=== PATIENT | male | born 1995 | race African-American/Black ===

== ENCOUNTER 2020-12-14 09:08 | Inpatient (IN) | payer MEDICAID ==
[~2020-12-14] VITALS: Ht 188 cm; Wt 65.3 kg
[2020-12-14] MEDS ORDERED: IV NS 0.9% 1,000 ML BAG IV ONE (09:30)
--- NOTE | 2020-12-14 09:34 | NUR ---
BIB RA 878 FROM OUTSIDE A STORAGE FACILITY,GENERALIZED WEAKNESS,HASN'T EAT FOR AWHILE. ON ROOM AIR, BREATHING EVENLY AND UNLABORED. CONNECTED TO THE MONITOR AND PULSE OX. KEPT COMFORTABLE, WILL CONTINUE TO MONITOR ACCORDINGLY.
--- NOTE | 2020-12-14 09:39 | NUR ---
DR MAYA MADE AWAER THE PATIENT`S TEMP OF 94.7F
--- NOTE | 2020-12-14 09:48 | NUR ---
TRACY SIMMONS ORDERED PER DR MAYA. PAGED [facility]EN[facility]PPL[facility] TO DELIVER IT ASHWIN.
--- NOTE | 2020-12-14 09:49 | NUR ---
THE PATIENT IS COVERED WITH MULTIPLE WARM BLANKETS TO KEEP HIM WARM WHILE WAITING FOR TRACY HUGGER TO BE DELIVERED BY CENTR[facility] SUPPL[facility].
[2020-12-14 09:57] LABS: BASOPHILS # (AUTO) 0.1 K/uL (0.0-0.2); BASOPHILS % (AUTO) 0.4 % (0.0-2.0); HEMATOCRIT 59 % (39-51); LYMPHOCYTES % (AUTO) 8.7 % (20.0-44.0); MEAN CORPUSCULAR HGB CONC 32 g/dl (31.0-36.0); MEAN CORPUSCULAR VOLUME 92 fL (80-96); MONOCYTES # (AUTO) 1.2 K/uL (0.1-1.30); MONOCYTES % (AUTO) 5.1 % (2.0-12.0); NEUTROPHILS # (AUTO) 19.5 K/uL (1.8-8.9); NEUTROPHILS % (AUTO) 85.8 % (43.0-81.0); PLATELET COUNT (AUTO) 247 K/uL (150-450); RED BLOOD CELL COUNT(AUTO) 6.42 MIL/uL (4.5-6.0); WHITE BLOOD COUNT (AUTO) 22.8 K/uL (4.3-11.0)
--- NOTE | 2020-12-14 09:57 | NUR ---
TAKEN TO CT
--- NOTE | 2020-12-14 10:05 | NUR ---
THE PATIENT IS BACK FROM CT
--- NOTE | 2020-12-14 10:05 | NUR ---
THE PATIENT REMAINS COVERED WITH MILTIPLE WARM BLANKETS.
[2020-12-14] MEDS ORDERED: PIPERACILLIN /TAZOBACTAM 3.375 G in IV D5W 50 ML IV ONE (10:30)
[2020-12-14] MEDS ORDERED: VANCOMYCIN 1 GM in IV D5W 250 ML IV ONE (10:30)
--- NOTE | 2020-12-14 10:44 | NUR ---
THE PATIENT IS TAEKN TO CT
[2020-12-14 10:47] LABS: BILIRUBIN,TOTAL 0.8 mg/dL (0.2-1.0); CALCIUM, SERUM 8.8 mg/dL (8.5-10.1); POTASSIUM 3.7 mmol/L (3.5-5.1)
[2020-12-14 10:48] LABS: ALBUMIN 5.2 g/dL (3.4-5.0); BILIRUBIN,DIRECT 0.3 mg/dL (0.0-0.2); TOTAL PROTEIN, SERUM 9.6 g/dL (6.4-8.2)
--- NOTE | 2020-12-14 10:58 | NUR ---
COVID SWAB DONE AND SENT TO LAB
[2020-12-14] MEDS ORDERED: IV NS 0.9% 1,000 ML IV ONE (11:30)
--- NOTE | 2020-12-14 11:31 | NUR ---
[facility] CALLED FLAT SCREEN WORKER PAGED.
--- NOTE | 2020-12-14 11:37 | NUR ---
TEXTED DR. HILARIO TO CALL US BACK.
--- NOTE | 2020-12-14 11:45 | NUR ---
[facility] CALLED AGAIN
--- NOTE | 2020-12-14 12:08 | NUR ---
GOT BED 117-2
--- NOTE | 2020-12-14 12:14 | NUR ---
REPORT GIVEN TO NURSE SOON
--- NOTE | 2020-12-14 12:19 | NUR ---
TRACY SIMMONS DELIVERED AND APPLIED ON THE PATIENT.
--- NOTE | 2020-12-14 12:27 | NUR ---
THE PATIENT IS TAKEN TO ASSIGNED ROOM IN STABLE CONDITION AND PER ACLS POLICY.
[2020-12-14] MEDS ORDERED: MAGNESIUM HYDROXIDE 30 ML UDC PO PRN (12:30)
[2020-12-14] MEDS ORDERED: LORAZEPAM INJ 2 MG/ML VIAL IV PRN (12:30)
[2020-12-14] MEDS ORDERED: ZOLPIDEM TARTRATE 5 MG TABLET PO PRN (12:30)
[2020-12-14] MEDS ORDERED: MAG HYDROX/AL HYDROX/SIMETH 30 ML UDC PO PRN (12:30)
[2020-12-14] MEDS ORDERED: Z GUARD REMEDY 2 OZ OINT TP PRN (12:30)
[2020-12-14] MEDS ORDERED: ONDANSETRON HCL/PF 4 MG/2 ML VIAL IVP PRN (12:30)
[2020-12-14] MEDS ORDERED: ACETAMINOPHEN 325 MG TABLET PO PRN (12:30)
[2020-12-14] MEDS: IV 1/2NS 1000 ML 1,000 ML IV SCH ×2 (12:43→18:32)
--- NOTE | 2020-12-14 12:45 | NUR ---
RN NOTE PATIENT ADMITTED FROM ER WITH BARBOUR CATHETER, PATIENT AWAKE AND RESPONSIVE, ABLE TO VERBALIZE NEEDS, AMBULATES TO BATHROOM WITH ASSIST, ADMITTING TO TELE ROOM 117-[address] LA.
[2020-12-14] MEDS ORDERED: INSULIN REGULAR, HUMAN 100 UNIT/ML 3 ML VIAL SQ PRN (13:00)
[2020-12-14] MEDS ORDERED: *INSULIN REGULAR(HUMULIN R)HUM 100 UNIT/ML VIAL SQ PRN (13:00)
[2020-12-14] MEDS ORDERED: DEXTROSE 50%-WATER 50 ML DISP.SYRIN IV PRN (13:00)
[2020-12-14 16:00] VITALS: BP 118/79
[2020-12-14] MEDS ORDERED: BLOOD SUGAR DIAGNOSTIC 1 EACH STRIP VI SCH (17:30)
--- NOTE | 2020-12-14 18:29 | NUR ---
RN NOTE PATIENT PULLED PUT BARBOUR CATHETER
--- NOTE | 2020-12-14 18:56 | NUR ---
RN NOTE PATIENT PULLED OUT IV RIGHT AC, WANTS TO LEAVE THE HOSPITAL AGAINST MEDICAL ADVICE, NOTIFIED DR. LA OK TO GO AMA PER BESSIE HERNANDEZ.
== END 2020-12-14 19:07 | disposition left against medical advice (07) | DRG 426 ==
LOC: ER 09:12 → TELE1 12:11
PROVIDERS: ADMIT Internal Medicine; ATTEND Internal Medicine
DX: E87.0 Hyperosmolality and hypernatremia (principal); N17.0 Acute kidney failure with tubular necrosis; J98.59 Other diseases of mediastinum, not elsewhere classified; E87.2 Acidosis; Z59.0 Homelessness; E86.1 Hypovolemia; R53.1 Weakness; Z20.822 Contact with and (suspected) exposure to COVID-19; F15.10 Other stimulant abuse, uncomplicated; F17.210 Nicotine dependence, cigarettes, uncomplicated; R73.9 Hyperglycemia, unspecified
CPT/HCPCS: 36415; 70450-TC; 71045-TC; 71250-TC; 76770-TC; 80048-TC; 80076-TC; 82550-TC; 82553; 83605-TC; 85025-TC; 87040-TC; 87081-TC; C9803; G0378; G0480; J1815; J2543; J3370; J3490; J7030; J7060; U0003

== ENCOUNTER 2020-12-14 22:59 | Inpatient (IN) | payer MEDICAID ==
[~2020-12-14] VITALS: Ht 182.9 cm; Wt 70.3 kg
--- NOTE | 2020-12-14 23:15 | NUR ---
BIBSELF C/O FEELING SICK AND NAUSEA. PT A/OX4. TOLERATING R/A WELL. CONNECTED PT POX AND TELE MONITOR.
[2020-12-14] MEDS ORDERED: IV NS 0.9% 1,000 ML BAG IV ONE (23:30)
--- NOTE | 2020-12-15 00:05 | NUR ---
BLOOD WORK COLLECTED AND SENT TO LAB. RAC #20G S/L AND LAC #20G INFUSING NS
--- NOTE | 2020-12-15 00:10 | NUR ---
XRAY AT BEDSIDE
--- NOTE | 2020-12-15 00:15 | NUR ---
URINE COLLECTED AND SENT TO LAB. URINE COLOR BRIGHT RED NOTED.
[2020-12-15] MEDS ORDERED: IV 1/2NS 1000 ML 1,000 ML IV PRN (00:30)
--- NOTE | 2020-12-15 01:40 | NUR ---
ALL LAB WORK PICKED UP SEND OUT TO [facility]
--- NOTE | 2020-12-15 02:01 | NUR ---
LAB CALLED TO REDRAW PT; ORDER ENTRY ADMINISTRATOR WILL SEND OUT TO DENEEN
[2020-12-15 02:24] LABS: WHITE BLOOD COUNT (AUTO) 20.1 K/uL (4.3-11.0)
[2020-12-15 02:25] LABS: HEMATOCRIT 54 % (39-51); HEMOGLOBIN 17.8 g/dL (13.5-17.5); MEAN CORPUSCULAR HGB CONC 33 g/dl (31.0-36.0); MEAN CORPUSCULAR VOLUME 90 fL (80-96); NEUTROPHILS % (AUTO) 87.3 % (43.0-81.0); PLATELET COUNT (AUTO) 210 K/uL (150-450); RED BLOOD CELL COUNT(AUTO) 5.95 MIL/uL (4.5-6.0)
[2020-12-15 02:26] LABS: BASOPHILS % (AUTO) 0.2 % (0.0-2.0); EOSINOPHILS % (AUTO) 0.2 % (0.0-6.0); LYMPHOCYTES # (AUTO) 1.7 K/uL (0.8-4.8); LYMPHOCYTES % (AUTO) 8.4 % (20.0-44.0); MONOCYTES # (AUTO) 0.8 K/uL (0.1-1.30); MONOCYTES % (AUTO) 3.9 % (2.0-12.0); NEUTROPHILS # (AUTO) 17.6 K/uL (1.8-8.9)
--- NOTE | 2020-12-15 02:52 | NUR ---
PT NOTED WITH 250ML TEA COLORED URINE
--- NOTE | 2020-12-15 02:59 | NUR ---
JALEN FROM [facility] REPORTED LACTIC ACID IS 4.1. BARRY GEORGE AWARE.
[2020-12-15] MEDS ORDERED: VANCOMYCIN 1 GM in IV D5W 250ml IV ONE (03:00)
[2020-12-15] MEDS ORDERED: VANCOMYCIN 1 GM VIAL ONE (03:08)
[2020-12-15 03:26] LABS: CALCIUM, SERUM 9.1 mg/dL (8.5-10.1); CARBON DIOXIDE 23 mmol/L (21-32); CHLORIDE 117 mmol/L (98-107); GLUCOSE 100 mg/dL (74-106); POTASSIUM 4.1 mmol/L (3.5-5.1); SODIUM SERUM 155 mmol/L (136-145)
[2020-12-15 03:27] LABS: BILIRUBIN,TOTAL 0.8 mg/dL (0.2-1.0); CREATININE 3.8 mg/dL (0.6-1.3)
[2020-12-15 03:28] LABS: ALKALINE PHOSPHATASE 78 U/L (46-116); ASPARTATE AMINOTRANSFERASE 32 U/L (15-37); BILIRUBIN,DIRECT < 0.1 mg/dL (0.0-0.2)
[2020-12-15 03:29] LABS: ALANINE AMINOTRANSFERASE 17 U/L (12-78); ALBUMIN 4.6 g/dL (3.4-5.0); TOTAL PROTEIN, SERUM 8.8 g/dL (6.4-8.2)
[2020-12-15 03:31] LABS: UREA NITROGEN, BLOOD 137 mg/dL (7-18)
[2020-12-15 04:19] LABS: COLOR,URINE BLOODY (YELLOW); PH,URINE 5.5 (5.0-8.0); PROTEIN,URINE 3+ mg/dl (NEGATIVE); UGLUCOSE NEGATIVE (NEGATIVE)
[2020-12-15 04:20] LABS: BILIRUBIN,URINE NEGATIVE (NEGATIVE); LEUKOCYTE ESTERASE ,URINE NEGATIVE (NEGATIVE); NITRITE, URINE NEGATIVE (NEGATIVE); UROBILINOGEN,URINE 0.2 EU/dL (0.2)
[2020-12-15 04:21] LABS: BACTERIA,URINE None seen /HPF (None Seen); SQUAMOUS EPITHELIAL CELL,UR Few /HPF (None Seen); URIC ACID CRYSTALS,URINE Few /HPF (None Seen); WBC,URINE TOO NUMEROUS TO COUN /HPF (0-3)
[2020-12-15 04:25] LABS: THYROID STIMULATING HORMONE 1.784 uIU/mL (0.358-3.74)
[2020-12-15] MEDS ORDERED: PIPERACILLIN /TAZOBACTAM 3.375 G VIAL IV ONE (05:01)
[2020-12-15] MEDS ORDERED: PIPERACILLIN /TAZOBACTAM 3.375 G in IV D5W 50 ML IV SCH ×2 (06:00→12:00)
--- NOTE | 2020-12-15 06:12 | NUR ---
ROOM 106 AFTER SHIFT CHANGE
--- NOTE | 2020-12-15 07:14 | NUR ---
SPOKE TO JESSICA HERNANDEZ RN; RN NOT AVAILABLE FOR REPORT AT THIS TIME.
[2020-12-15 08:11] VITALS: BP 115/81
--- NOTE | 2020-12-15 08:12 | NUR ---
Patient does not wish to proceed with medical care recommended by Dr. Leslie. Patient given information related to possible complications, up to and including , which could occur as a result of leaving the hospital at this time. Patient verbalizes understanding of risks involved due to leaving against medical advice. Patient has signed AMA form.
--- NOTE | 2020-12-16 10:09 | NUR ---
SS note SS consult requested for drug abuse. SW was unable to assess the pt as the pt had already been discharged. No further SS intervention at this time, however, SW will remain available as needed.
== END 2020-12-15 07:55 | disposition left against medical advice (07) | DRG 469 ==
LOC: ER 23:01 → TRANSITION 12-15 01:14
PROVIDERS: ADMIT Family Medicine; ATTEND Family Medicine
DX: N17.9 Acute kidney failure, unspecified (principal); J98.2 Interstitial emphysema; E86.0 Dehydration; D72.829 Elevated white blood cell count, unspecified; E11.9 Type 2 diabetes mellitus without complications; F15.10 Other stimulant abuse, uncomplicated
CPT/HCPCS: 36415; 71045-TC; 80048-TC; 80076-TC; 81001; 82140-TC; 82962-TC; 83605-TC; 84443-TC; 84484-TC; 85025-TC; 85730-TC; 87040-TC; 87081-TC; 87086-TC; G0378; G0480; J2543; J3370; J3490; J7030; J7060

== ENCOUNTER 2020-12-22 15:25 | Inpatient (IN) | payer MEDICAID, OTHER ==
[~2020-12-22] VITALS: Ht 188 cm; Wt 61.2 kg
--- NOTE | 2020-12-22 17:42 | NUR ---
THE PATIENT IS BIBRA99, SLEEPING IN A BIKE PATH STATE "I DONT WANT TO LIVE ANYMORE". THE PATIENT IS ALERT AND ORIENTED X3. THE PATIENT DENIES SI/HI AT THIS TIME. HE STATES THAT HE HAS NOT BEEN EATING FOR MANY DAYS AND WANTS FOOD AND WATER. THE PATIENT DENIES PAIN. IN ROOM AIR AND DENIES SOB. RESPIRATION REGULAR AND UNLABORED. THE PATIENT IS ATTACHED TO THE MONITOR. WARM BLANKET PROVIDED FOR COMFORT. WILL CONTINUE TO MONITOR THE PATIENT.
--- NOTE | 2020-12-22 17:57 | NUR ---
COVID SWAB DONE AND SENT TO THE LAB
[2020-12-22 18:31] LABS: BILIRUBIN,URINE MODERATE (NEGATIVE); COLOR,URINE YELLOW (YELLOW); LEUKOCYTE ESTERASE ,URINE NEGATIVE (NEGATIVE); NITRITE, URINE NEGATIVE (NEGATIVE); PH,URINE 5.5 (5.0-8.0); PROTEIN,URINE 30 mg/dl (NEGATIVE); UGLUCOSE NEGATIVE (NEGATIVE); UROBILINOGEN,URINE 0.2 EU/dL (0.2)
[2020-12-22 18:57] LABS: BACTERIA,URINE 1+ /HPF (None Seen); HYALINE CASTS, URINE Many /LPF (None Seen); MUCUS,URINE Moderate /LPF (None Seen); SQUAMOUS EPITHELIAL CELL,UR 0-2 /HPF (None Seen)
[2020-12-22 19:23] LABS: ALANINE AMINOTRANSFERASE 30 U/L (12-78); ALBUMIN 4.9 g/dL (3.4-5.0); ALKALINE PHOSPHATASE 94 U/L (46-116); ASPARTATE AMINOTRANSFERASE 28 U/L (15-37); BILIRUBIN,DIRECT 0.2 mg/dL (0.0-0.2); BILIRUBIN,TOTAL 0.8 mg/dL (0.2-1.0); CALCIUM, SERUM 9.4 mg/dL (8.5-10.1); CREATININE 2.5 mg/dL (0.6-1.3); GLUCOSE 179 mg/dL (74-106); TOTAL PROTEIN, SERUM 9.4 g/dL (6.4-8.2)
[2020-12-22 19:27] LABS: CARBON DIOXIDE 27 mmol/L (21-32); CHLORIDE 123 mmol/L (98-107); POTASSIUM 4.2 mmol/L (3.5-5.1)
[2020-12-22 19:29] LABS: BASOPHILS % (AUTO) 0.3 % (0.0-2.0); EOSINOPHILS % (AUTO) 0.3 % (0.0-6.0); HEMOGLOBIN 18.4 g/dL (13.5-17.5); NEUTROPHILS # (AUTO) 9.9 K/uL (1.8-8.9)
[2020-12-22 19:32] LABS: ACETAMINOPHEN 0 ug/ml (10-30); ALCOHOL, BLOOD < 3 mg/dL (0-0); SODIUM SERUM 166 mmol/L (136-145); UREA NITROGEN, BLOOD 98 mg/dL (7-18)
[2020-12-22 19:33] LABS: HEMATOCRIT 58 % (39-51); LYMPHOCYTES # (AUTO) 2.7 K/uL (0.8-4.8); LYMPHOCYTES % (AUTO) 19.6 % (20.0-44.0); MEAN CORPUSCULAR HGB CONC 32 g/dl (31.0-36.0); MEAN CORPUSCULAR VOLUME 93 fL (80-96); MONOCYTES % (AUTO) 7.6 % (2.0-12.0); NEUTROPHILS % (AUTO) 72.2 % (43.0-81.0); PLATELET COUNT (AUTO) 191 K/uL (150-450); RED BLOOD CELL COUNT(AUTO) 6.22 MIL/uL (4.5-6.0); WHITE BLOOD COUNT (AUTO) 13.7 K/uL (4.3-11.0)
[2020-12-22 19:56] LABS: BAND % (MANUAL) 1 % (0.0-5.0); EOSINOPHILS % (MANUAL) 2 % (0-4); LYMPHOCYTES % (MANUAL) 21 % (16-48); MONOCYTES % (MANUAL) 11 % (0-11.0); NEUTROPHILS % (MANUAL) 64 (42-76); REACTIVE LYMPHOCYTES 1 % (0-0)
[2020-12-22] MEDS ORDERED: IV NS 0.9% 500 ML BAG IV ONE (20:00)
--- NOTE | 2020-12-22 20:00 | NUR ---
PATIENT IN BED RESTING. PATIENT VSS. PATIENT IN NO ACUTE DISTRESS. PATIENT CONNECTED TO CARDIAC AND POX MONITORS.
[2020-12-22] MEDS ORDERED: MORPHINE SULFATE INJ 2 MG/ML DISP.SYRIN IV PRN (21:30)
[2020-12-22] MEDS ORDERED: ACETAMINOPHEN 325 MG TABLET PO PRN (21:30)
[2020-12-22] MEDS ORDERED: MAGNESIUM HYDROXIDE 30 ML UDC PO PRN (21:30)
[2020-12-22] MEDS ORDERED: ZOLPIDEM TARTRATE 5 MG TABLET PO PRN (21:30)
[2020-12-22] MEDS ORDERED: ONDANSETRON HCL/PF 4 MG/2 ML VIAL IVP PRN (21:30)
[2020-12-22] MEDS ORDERED: Z GUARD REMEDY 2 OZ OINT TP PRN (21:30)
[2020-12-22] MEDS ORDERED: MAG HYDROX/AL HYDROX/SIMETH 30 ML UDC PO PRN (21:30)
[2020-12-22] MEDS: IV 1/2NS 1000 ML 1,000 ML IV PRN (22:17)
[2020-12-22] MEDS ORDERED: LORAZEPAM 1 MG TABLET ONE (22:28)
[2020-12-22] MEDS ORDERED: ZOLPIDEM TARTRATE 5 MG TABLET ONE (22:33)
[2020-12-22] MEDS: LORAZEPAM 1 MG TABLET PO PRN (22:38)
[2020-12-23] MEDS ORDERED: MORPHINE SULFATE INJ 2 MG/ML DISP.SYRIN ONE (04:24)
[2020-12-23 05:02] LABS: BASOPHILS % (AUTO) 0.3 % (0.0-2.0); EOSINOPHILS % (AUTO) 1.7 % (0.0-6.0); HEMATOCRIT 46 % (39-51); HEMOGLOBIN 14.6 g/dL (13.5-17.5); LYMPHOCYTES # (AUTO) 2.9 K/uL (0.8-4.8); LYMPHOCYTES % (AUTO) 20.9 % (20.0-44.0); MEAN CORPUSCULAR HGB CONC 32 g/dl (31.0-36.0); MEAN CORPUSCULAR VOLUME 91 fL (80-96); MONOCYTES # (AUTO) 1.2 K/uL (0.1-1.30); MONOCYTES % (AUTO) 8.5 % (2.0-12.0); NEUTROPHILS # (AUTO) 9.4 K/uL (1.8-8.9); NEUTROPHILS % (AUTO) 68.6 % (43.0-81.0); PLATELET COUNT (AUTO) 132 K/uL (150-450); RED BLOOD CELL COUNT(AUTO) 5.02 MIL/uL (4.5-6.0); WHITE BLOOD COUNT (AUTO) 13.7 K/uL (4.3-11.0)
[2020-12-23 05:21] LABS: CREATININE 1.7 mg/dL (0.6-1.3); MAGNESIUM 2.7 mg/dL (1.8-2.4); PHOSPHORUS 1.9 mg/dL (2.5-4.9); POTASSIUM 3.7 mmol/L (3.5-5.1)
--- NOTE | 2020-12-23 06:04 | NUR ---
pt sleeping in [place]. no signs of distress noted. pt vital signs stable. will cont to monitor pt.
[2020-12-23] MEDS ORDERED: PANTOPRAZOLE 40 MG TABLET.DR PO ONE (07:36)
[2020-12-23] MEDS: PANTOPRAZOLE 40 MG TABLET.DR PO SCH (07:42)
--- NOTE | 2020-12-23 07:44 | NUR ---
assume patient care. resting in bed. stable vitals. am medis given. provided w/ breakfast tray.
--- NOTE | 2020-12-23 07:58 | NUR ---
REPORT GIVEN TO SIMON HILLS. PT AWAITING TRANSFER TO FLOOR.
[2020-12-23 08:30] VITALS: BP 76/50
--- NOTE | 2020-12-23 08:30 | NUR ---
MS RN NOTES ADMITTED FROM ER, DX ACUTE RENAL FAILURE/HYPERNATREMIA BY DR. BARBIE BOWMAN, AO X 3, PT FOUND FROM BIKE PATHWAY BY AMBULANCE, HOMELESS, WAS PREVIOUSLY ADMITTED HER BUT WENT AGAINST MEDICAL ADVISE. ON ROOM AIR, NOT IN ANY DISTRESS, NO SOB, RESPIRATION UNLABORED, O2 SAT 100%. DENIES ANY PAIN AT THIS TIME, IV ACCESS ON RIGHT UPPER ARM G 20, FLUSHES WELL SITE CLEAR. SKIN INTACT, REGULAR DIET, UNIT ORIENTATION AND USE OF CALL LIGHT DONE, VERBALIZED UNDERSTANDING, BED LOW LOCKED, SR UP X 2, SITTER AT BEDSIDE. ADMIT ORDERS CARRIED OUT. PATIENT FOR PSYCH CONSULT TODAY. WILL CONT TO MONITOR
[2020-12-23] MEDS: HEPARIN SODIUM, PORCINE 5000 UNITS/1 ML VIAL SQ SCH ×2 (09:40→22:00)
[2020-12-23] MEDS ORDERED: K PHOS NEUTRAL 250 MG TABLET PO ONE (10:00)
[2020-12-23] MEDS: ENSURE ENLIVE 237 ML LIQUID (VANILLA) PO SCH ×3 (10:30→17:12)
[2020-12-23] MEDS: IV 1/2NS 1000 ML 1,000 ML IV PRN (10:40)
--- NOTE | 2020-12-23 14:05 | NUR ---
SS consult SS consult requested for homelessness. Pt is a 25-year-old, male. SW met with pt at his bedside in the med-surg unit. Pt was alert and oriented x3. Pt was not oriented to situation. Pt presented lethargic and was resting. Pt was calm and cooperative. Pt appeared well-groomed and appropriately dressed. Per chart, pt was brought in by ambulance on 12/22/20 and was found sleeping on a bike path and stated, "I don't want to live anymore." SW asked pt about his prior living arrangement and pt was unable to provide SW with adequate information. Pt repeatedly stated, "[place]" and reported that he currently lives at a house. Pt was unable to provide SW with an address for the residence or further information regarding the location. Pt denied homelessness. Pt stated that he currently has no social support. Pt receives SSI as a source of income. Pt reported no hx of substance use. Pt denied hx of mental illness. Pt denied current SI/HI. Per H&P, pt stated that he is homeless and admits to substance use hx. Per pt's RN Constanza, pt has a hx of amphetamine use. SW discussed with pt's RN that the pt denied homelessness. SW notified REINIER Apodaca that homeless resources and waiver will be filed in the pt's chart. AQUILES discussed d/c plans with the pt who stated he plans to return to his prior living arrangement and use public transportation to return. SS will remain available to follow up as needed. PLAN: SW filed homeless resources and waiver in the pt's chart for F/U at a later time and notified REINIER Apodaca. SS will remain available as needed. RESOURCES FILED: RESOURCES: Year-round shelters: [facility] [address] [place], [place] [phone] ; [facility] [address] [place] [address]; [id number] [facility]. [facility] [address] SPA 4 | [facility] Provider: First to Serve Address: [address] [place] [address], [facility] # of Beds: 48 Population Served: [facility] Provider: First to Serve Address: [address] [facility], [address] # of Beds: 73 Population Served: [place] SPA 6 | [facility] Provider: [facility] Last Address: [address] [facility], [address] # of Beds: 63 Population Served: [place] SPA 3 | [facility] Provider: [facility] [place] Address: [address] [facility], [address] # of Beds: 75 Population Served: [place] SPA 8 | [facility] Provider: [facility] [place] Address: [address] [facility], [address] # of Beds: 80 Population Served: [facility] 1 | [facility] Provider: [facility] [place] Address: [id number] [place] [address], [address] # of Beds: 85 Population Served: [facility] 2 | [facility] Provider: [facility] Address: Confidential (please call for location) # of Beds: 52 Population Served: [facility] 4 | [facility] Provider: [facility] Address: [address] [facility] [place], [address] # of Beds: 49 Population Served: [facility] Provider: First To Serve Address: [address] [place] [address], [address] # of Beds: 27 Population Served: Phyllis Hygiene: [facility]: [address] ; [facility] [address] [facility] ; [facility] [address] . Food Resources: [place] [facility] at [facility]- [address] [place]; Meet Each Need with Dignity ([facility]) [address] [facility]; [facility] [address] [facility]; [facility] [address] [place]. Mental Health resources provided: [facility] [address] [place] [address] ; [facility] [address] [facility] [address], [place], [place] [phone] ; [facility] [address] [facility] [place], [place] [phone] ; [facility] [address] [place], [place] [phone] Healthcare Clinics: [facility] [address] [facility] [place]. [place] ; [facility] [address] [facility] [address] [place] [address]; [facility] [address] [facility]. [place] [phone] Counseling--Outpatient [facility] [address], [address] [place], [place] [phone] (Specializes in in-depth psychotherapy for emotional distress: anxiety, depression, interpersonal conflicts, life transitions, childhood abuse) PSYCHIATRIC OUTPATIENT SERVICES [facility] Partial Hospitalization and Intensive Outpatient Program (Managed Care and [place] Only) [address] [facility]. [facility] [phone] [facility] Partial Hospitalization and Outpatient Program [address] [place], [place] [phone] [facility] Partial Hospitalization and Outpatient Program [address] [facility] [place], [place] [phone] [facility] [place] [facility] [address] [facility]. [address] [place], [place] [address] [facility] Partial Hospitalization and Outpatient Program [address] [place], [place] [phone] Substance use resources provided included: [facility] Substance Abuse Self-Helpline (SAS) ; [facility] [address] [facility]. [place] [address] ; [facility] [address] [facility] [address] ; [facility] [address] [facility] [phone] ; [facility] [address] [facility] [address] ; [facility] [address] [facility] [phone] ; [facility] [place]; [facility] [place]; [facility] Natalie; Alcoholics Anonymous -SFV
[2020-12-23 16:00] VITALS: BP 109/72
[2020-12-23] MEDS: risperiDONE 1 MG TABLET PO SCH (16:07)
[2020-12-23] MEDS: IV NS 0.9% 1,000 ML IV PRN (16:32)
--- NOTE | 2020-12-23 19:05 | NUR ---
RN NOTES ALL NEEDS MET AT THIS TIME. ALL NEEDS ATTENDED. SITTER AT BEDSIDE FOR SAFETY. NOT IN ANY DISTRESS. PATIENT HAS BEEN CALM AND COOPERATIVE BUT STILL VERBALIZES SUICIDAL THOUGHTS. ENDORSED TO NEXT SHIFT FOR FRANCK.
--- NOTE | 2020-12-23 19:30 | NUR ---
RN NOTE PT RESTING IN BED, NOURISHMENT PROVIDED. NO DISTRESS NOTED, VERBALIZES SI. SITTER AT BEDSIDE. PT ON ROOM AIR, BREATHING EVEN AND UNLABORED. IV SITE FLUSHED. SAFETY MEASURES IN PLACE. WILL CONT TO MONITOR
--- NOTE | 2020-12-23 22:34 | NUR ---
RN NOTE PT PULLED OUT IV, REFUSED INSERTION. CATHETER INTACT. NO S/S OF BLEEDING NOTED. RADAR ENGINEERING TEACHER COLBY MADE AWARE
--- NOTE | 2020-12-23 22:35 | NUR ---
RN NOTE REPORT GIVEN TO EVELYN HILLS FOR CONTINUATION OF CARE
--- NOTE | 2020-12-23 22:35 | NUR ---
RN NOTE RECEIVED PATIENT IN BED RESTING ALERT ORIENTED ON ROOM AIR VERBALLY RESPONSIVE WITH SITTER BEDSIDE STARTED A NEW IV LINE ON RIGHT FOREARM #22 STARTED NS 125CC/HR CONTINUE TO MONITOR.
[2020-12-24] MEDS: IV NS 0.9% 1,000 ML IV PRN ×2 (05:38→16:16)
[2020-12-24 06:36] LABS: BASOPHILS % (AUTO) 0.3 % (0.0-2.0); EOSINOPHILS % (AUTO) 1.4 % (0.0-6.0); HEMATOCRIT 33 % (39-51); HEMOGLOBIN 11.2 g/dL (13.5-17.5); LYMPHOCYTES # (AUTO) 2.4 K/uL (0.8-4.8); LYMPHOCYTES % (AUTO) 39.4 % (20.0-44.0); MEAN CORPUSCULAR HGB CONC 34 g/dl (31.0-36.0); MEAN CORPUSCULAR VOLUME 88 fL (80-96); MONOCYTES # (AUTO) 0.5 K/uL (0.1-1.30); MONOCYTES % (AUTO) 7.5 % (2.0-12.0); NEUTROPHILS # (AUTO) 3.1 K/uL (1.8-8.9); NEUTROPHILS % (AUTO) 51.4 % (43.0-81.0); PLATELET COUNT (AUTO) 96 K/uL (150-450); RED BLOOD CELL COUNT(AUTO) 3.77 MIL/uL (4.5-6.0)
--- NOTE | 2020-12-24 06:48 | NUR ---
RN NOTE PATIENT PULLED OUT IV LINE AND REFUSES TO HAVE A NEW ONE CONTINUE TO MONITOR.
--- NOTE | 2020-12-24 06:53 | NUR ---
RN NOTE PATIENT REMAINS ALERT ORIENTED X3 VERBALLY RESPONSIVE ON ROOM AIR HE REFUSES TO HAVE IV LINE WILL ENDORSE NEXT COMING SHIFT FOR CONTINUATION OF CARE.
[2020-12-24 07:15] LABS: CALCIUM, SERUM 7.6 mg/dL (8.5-10.1); CREATININE 1.1 mg/dL (0.6-1.3); MAGNESIUM 1.8 mg/dL (1.8-2.4); POTASSIUM 3.6 mmol/L (3.5-5.1)
[2020-12-24] MEDS: PANTOPRAZOLE 40 MG TABLET.DR PO SCH (07:51)
[2020-12-24 08:00] VITALS: BP 119/100
--- NOTE | 2020-12-24 08:08 | NUR ---
NURSE OPENING NOTE RECEIVE REPORT FROM OUT GOING NURSE. PATIENT IS STABLE AND COMFORTABLE. A/O X3. PATIENT IS ON ROOM AIR. SITTER IS NEEDED. PATIENT WANT TO BE LEAVE THE HOSPITAL BUT NEED TO BE CLEAR BY DOCTOR DUE TO HYPERNATREMIA. WILL MONITOR LABS. SAFETY MEASURE IN PLACE. CALL LIGHT WITH IN REACH. BED IN LOWEST POSITION WITH HOB ELEVATED 3 DEGREE. WILL CONTINUE TO MONITOR.
[2020-12-24 09:00] VITALS: BP 119/100
[2020-12-24] MEDS ORDERED: ESCITALOPRAM OXALATE (10 MG) 10 MG TABLET PO SCH (09:00)
[2020-12-24] MEDS: ENSURE ENLIVE 237 ML LIQUID (VANILLA) PO SCH ×3 (09:00→17:31)
--- NOTE | 2020-12-24 09:09 | NUR ---
RN NOTE Refused all due meds including Risperdal, lexapro, Arivan PRN. Attempted to leave room and walked down the hallway, escorted back in the room by staff. Wants to leave hospital states daughter and mother are waiting for him. Texted DNP.
[2020-12-24] MEDS: LORAZEPAM 1 MG TABLET PO PRN (09:21)
[2020-12-24] MEDS: risperiDONE 1 MG TABLET PO SCH ×2 (09:21→16:44)
[2020-12-24 10:12] LABS: BAND % (MANUAL) 1 % (0.0-5.0); EOSINOPHILS % (MANUAL) 3 % (0-4); LYMPHOCYTES % (MANUAL) 39 % (16-48); MONOCYTES % (MANUAL) 8 % (0-11.0); NEUTROPHILS % (MANUAL) 49 (42-76)
[2020-12-24] MEDS: HEPARIN SODIUM, PORCINE 5000 UNITS/1 ML VIAL SQ SCH ×2 (10:33→21:00)
--- NOTE | 2020-12-24 14:27 | NUR ---
PATIENT AWAKE ALERT WANTED TO LEAVE HOSPITAL,CLARIFY WITH DR. MAIDA OBANDO IF PT MEDICALLY CLEAR PER MAIDA WILEY TO INITIATE CRISI TEAM PRICILLA.SPOKE WITH SALVADOR AND WILL SEND CRISIS TEAM TO EVAL PT.
[2020-12-24] MEDS ORDERED: K PHOS NEUTRAL 250 MG TABLET PO ONE (15:30)
[2020-12-24] MEDS: HYDROCODONE/APAP 5/325MG TABLET PO PRN (15:48)
--- NOTE | 2020-12-24 16:17 | NUR ---
NURSE NOTE INSERT NEW IV, RIGHT FOREARM,18G. FLUSH WELL. WILL CONTINUE NORMAL SALINE @ 125ML/HR. Addendum: 12/24/20 at 1628 by MIRANDA GONSALEZ RN IV IS 20G.
[2020-12-24 16:30] VITALS: BP 148/68
--- NOTE | 2020-12-24 17:20 | NUR ---
SALVADOR FROM CRISIS TEAM CALLED UPDATED WITH PATIENT BEHAVIOUR AND DR. LEAVITT RECOMMENDATION,WILL SEE PATIENT TONITE.
--- NOTE | 2020-12-24 17:22 | NUR ---
CORRECTION [place] HILLS FROM CRISIS TEAM.
--- NOTE | 2020-12-24 19:35 | NUR ---
RN NOTE PT RECEIVED SLEEPING IN BED. PT IS ON ROOM AIR SHOWING NO S/S OF RESP DISTRESS/SOB. A/OX3. SKIN INTACT. CURRENTLY ON REGULAR DIET. SITTER PRESENT. IV ACCESS NOTED ON RIGHT FA #20, LINE FLUSHED, PATENT, AND INTACT RUNNING 0.9% NS AT 125 ML/HR, NO SIGNS OF INFILTRATION. ALL SAFETY MEASURES IMPLEMENTED. CALL LIGHT WITHIN REACH. BED ALARM ON. BED LOCKED AND IN LOWEST POSITION. WILL CONTINUE TO MONITOR AND ASSESS FOR ANY CHANGES THROUGHOUT SHIFT.
[2020-12-24 21:00] VITALS: BP 91/54
--- NOTE | 2020-12-24 22:02 | NUR ---
RN NOTE SPOKE WITH DR. NIETO ABOUT PT'S LOW PLATELETS OF 96. DR. NIETO ORDERED TO HOLD HEPARIN FOR THE NIGHT. ORDER NOTED AND CARRIED OUT.
[2020-12-25 04:00] VITALS: BP 94/51
[2020-12-25] MEDS: HYDROCODONE/APAP 5/325MG TABLET PO PRN (04:24)
[2020-12-25] MEDS: IV NS 0.9% 1,000 ML IV PRN (05:01)
[2020-12-25 06:39] LABS: BASOPHILS % (AUTO) 0.4 % (0.0-2.0); EOSINOPHILS % (AUTO) 1.8 % (0.0-6.0); HEMATOCRIT 30 % (39-51); LYMPHOCYTES % (AUTO) 35.2 % (20.0-44.0); MEAN CORPUSCULAR HGB CONC 34 g/dl (31.0-36.0); MEAN CORPUSCULAR VOLUME 88 fL (80-96); MONOCYTES # (AUTO) 0.4 K/uL (0.1-1.30); MONOCYTES % (AUTO) 6.4 % (2.0-12.0); NEUTROPHILS # (AUTO) 3.2 K/uL (1.8-8.9); NEUTROPHILS % (AUTO) 56.2 % (43.0-81.0); PLATELET COUNT (AUTO) 81 K/uL (150-450); RED BLOOD CELL COUNT(AUTO) 3.37 MIL/uL (4.5-6.0); WHITE BLOOD COUNT (AUTO) 5.7 K/uL (4.3-11.0)
--- NOTE | 2020-12-25 06:55 | NUR ---
RN NOTE NO CHANGES IN PT CONDITION DURING SHIFT. PT IS ON ROOM AIR SHOWING NO S/S OF RESP DISTRESS/SOB. A/OX3. IV ACCESS NOTED ON RIGHT FA #20, LINE FLUSHED, PATENT, AND INTACT RUNNING 0.9% NS AT 125 ML/HR, NO SIGNS OF INFILTRATION. ALL DUE MEDS GIVEN ORDERED. PT KEPT CLEAN AND COMFORTABLE. ALL SAFETY MEASURES IMPLEMENTED. CALL LIGHT WITHIN REACH. BED ALARM ON. BED LOCKED AND IN LOWEST POSITION. WILL ENDORSE TO MORNING SHIFT RN FOR FRANCK.
[2020-12-25 07:44] LABS: CALCIUM, SERUM 7.3 mg/dL (8.5-10.1); CREATININE 0.9 mg/dL (0.6-1.3); MAGNESIUM 1.8 mg/dL (1.8-2.4); PHOSPHORUS 1.7 mg/dL (2.5-4.9); POTASSIUM 3.3 mmol/L (3.5-5.1)
[2020-12-25 08:33] VITALS: BP 148/68
--- NOTE | 2020-12-25 09:30 | NUR ---
RN NOTES, PATIENT EXPRESSING THAT HE WANTS TO LEAVE AGAINST MEDICAL ADVICE, RISKS AND BENEFITS EXPLAINED, STILL WANTS TO LEAVE, ASSESSED BY [facility] CRISIS TEAM LAST NIGHT AND HE AGREED TO TRANSFER TO [place] TODAY, AT THIS TIME, PATIENT REFUSED TO GO AND HE STATED HE DOESN'T HAVE ANY SUICIDAL THOUGHTS, MD AWARE, PATIENT SIGNED AGAINST MEDICAL ADVICE PAPERWORK.
[2020-12-25 09:56] LABS: LYMPHOCYTES % (MANUAL) 32 % (16-48); MONOCYTES % (MANUAL) 6 % (0-11.0); NEUTROPHILS % (MANUAL) 59 (42-76)
== END 2020-12-25 09:31 | disposition left against medical advice (07) | DRG 426 ==
LOC: ER 15:27 → TRANSITION 21:29 → TELE1 12-23 07:57 → MEDSG1 12-23 10:36
PROVIDERS: ADMIT Nurse Practitioner Acute Care; ATTEND Nurse Practitioner Acute Care
DX: E87.0 Hyperosmolality and hypernatremia (principal); N17.0 Acute kidney failure with tubular necrosis; E43 Unspecified severe protein-calorie malnutrition; R64 Cachexia; M62.82 Rhabdomyolysis; F33.3 Major depressive disorder, recurrent, severe with psychotic symptoms; F29 Unspecified psychosis not due to a substance or known physiological condition; E86.1 Hypovolemia; Z59.00 Homelessness unspecified; Z20.822 Contact with and (suspected) exposure to COVID-19; E11.9 Type 2 diabetes mellitus without complications; F15.90 Other stimulant use, unspecified, uncomplicated; F17.200 Nicotine dependence, unspecified, uncomplicated; Z68.1 Body mass index [BMI] 19.9 or less, adult; Z91.19 Patient's noncompliance with other medical treatment and regimen; F41.9 Anxiety disorder, unspecified
CPT/HCPCS: 36415; 71045-TC; 80048-TC; 80076-TC; 81001; 82550-TC; 83735-TC; 84100-TC; 85025-TC; 87081-TC; C9803; G0378; G0480; J1644; J2270; J2405; J3490; J7030; U0003